=== PATIENT | male | born 1970 | race Caucasian/White ===

== ENCOUNTER 2017-01-16 23:04 | Emergency (ER) | payer OTHER ==
[~2017-01-16] VITALS: Ht 180.3 cm; Wt 83.5 kg
[~2017-01-16 23:04] MED LIST: LISI10TA2 PO
[2017-01-16 23:18] VITALS: BP 133/81
[2017-01-16] MEDS ORDERED: AMOX1TAB61 PO (23:28)
--- NOTE | 2017-01-16 23:28 | PHYS DOC ---
Past Medical History Past Medical History: Hypertension, Other Additional Past Medical Histor: hyperlidipemia, blind left eye Past Surgical History: Other Additional Past Surgical Histo: left eye Alcohol Use: None Drug Use: None Adult General Chief Complaint Chief Complaint: COUGH HPI HPI Patient is a 46 year old male presents to the emergency department complaining of a cough sore throat that started last night. He states that when he coughs he has a little bit of chest pressure. He states that he had slight shortness of air with the coughing. He denies fever, chills or any nausea vomiting. He denies any chest discomfort at the current time. Review of Systems Review of Systems Constitutional: Denies fever or chills [] Eyes: Denies change in visual acuity, redness, or eye pain [] HENT: Denies nasal congestion or sore throat [] Respiratory: cough denies shortness of breath [] Cardiovascular: No additional information not addressed in HPI [] GI: Denies abdominal pain, nausea, vomiting, bloody stools or diarrhea [] : Denies dysuria or hematuria [] Musculoskeletal: Denies back pain or joint pain [] Integument: Denies rash or skin lesions [] Neurologic: Denies headache, focal weakness or sensory changes [] Allergies Allergies Allergies Coded Allergies Type Severity Reaction Last Updated Verified No Known Drug Allergies 09/26/16 No Physical Exam Physical Exam Constitutional: Well developed, well nourished, no acute distress, non-toxic appearance. [] HENT: Normocephalic, atraumatic, bilateral external ears normal, oropharynx moist, no oral exudates, nose normal. Bilateral tympanic membranes appear to be normal. Throat with erythematous noted redness with postnasal drip noted. Eyes: PERRLA, EOMI, conjunctiva normal, no discharge. [] Neck: Normal range of motion, no tenderness, supple, no stridor. [] Cardiovascular:Heart rate regular rhythm, no murmur [] Lungs & Thorax: Bilateral breath sounds clear to auscultation [] Skin: Warm, dry, no erythema, no rash. [] Back: No tenderness Extremities: No tenderness, no cyanosis, no clubbing, ROM intact, no edema. [] Neurologic: Alert and oriented X 3, normal motor function, normal sensory function, no focal deficits noted. [] Psychologic: Affect normal, judgement normal, mood normal. [] EKG EKG [] Radiology/Procedures Radiology/Procedures [] Course & Med Decision Making Course & Med Decision Making Pertinent Labs and Imaging studies reviewed. (See chart for details) [] Dragon Disclaimer Dragon Disclaimer This electronic medical record was generated, in whole or in part, using a voice recognition dictation system. Departure Departure Impression: Primary Impression: Acute bacterial sinusitis Disposition: HOME, SELF-CARE Condition: STABLE Referrals: FERMÍN BUENO MD (PCP) Patient Instructions: Sinusitis, [id number] Additional Instructions: Activity as tolerated. Medications as prescribed. Mucinex DM to help with nasal congestion and cough. Drink on a fluids such as water propel or Gatorade. Follow-up with primary care physician in the next 3-5 days. Return back to emergency prior signs symptoms of become worse. Scripts Amoxicillin/Potassium Clav (Augmentin 875-125 Tablet)1 Each Tablet1 Tab PO BID # 20 TAB Prov:ANASTACIO LEVY APRN 01/16/17 ANASTACIO LEVY APRN Jan 16, 2017 23:28
== END 2017-01-16 23:30 | disposition home or self-care (01) ==
LOC: ER 23:04
DX: J01.80 Other acute sinusitis (principal); I10 Essential (primary) hypertension; R06.02 Shortness of breath
CPT/HCPCS: 99283

== ENCOUNTER 2017-05-01 19:49 | Emergency (ER) | payer OTHER ==
[~2017-05-01] VITALS: Ht 180.3 cm; Wt 79.0 kg
[~2017-05-01 19:49] MED LIST changes: +AMOX1TAB61 PO
[2017-05-01] MEDS ORDERED: IV NORMAL SALINE 1000ML BAG 1,000 ML IV ONE (20:30)
[2017-05-01 20:40] LABS: BASO % 1 % (0-3); EOS % 1 % (0-3); HEMATOCRIT 43.4 % (39.0-53.0); HEMOGLOBIN 15.2 g/dL (13.0-17.5); LYMPH # 0.4 x10^3/uL (1.0-4.8); LYMPH % 10 % (24-48); MEAN CORPUSCULAR HEMOGLOBIN 29 pg (25-35); MEAN CORPUSCULAR HGB CONC 35 g/dL (31-37); MEAN CORPUSCULAR VOLUME 83 fL (79-100); MONO % 13 % (0-9); NEUT % 76 % (31-73); PLATELET COUNT 193 x10^3/uL (140-400); RED BLOOD COUNT 5.24 x10^6/uL (4.30-5.70); WHITE BLOOD COUNT 4.3 x10^3/uL (4.0-11.0)
[2017-05-01 20:59] LABS: CALCIUM 8.7 mg/dL (8.5-10.1); CREATININE 1.2 mg/dL (0.7-1.3); GFR 64.4; POTASSIUM 3.8 mmol/L (3.5-5.1)
[2017-05-01 21:04] LABS: BILIRUBIN,URINE NEGATIVE (NEG); GLUCOSE,URINE NEGATIVE (NEG); NITRITE,URINE NEGATIVE (NEG); PROTEIN,URINE NEGATIVE (NEG-TRACE); UROBILINOGEN,URINE 0.2 mg/dL (0.2 mg/dL)
--- NOTE | 2017-05-01 21:10 | RAD ---
EXAM: Head CT without contrast. HISTORY: Weakness. TECHNIQUE: Computed tomographic images of the head were obtained without contrast. *One or more of the following individualized dose reduction techniques were utilized for this examination: 1. Automated exposure control. 2. Adjustment of the mA and/or kV according to patient size. 3. Use of iterative reconstruction technique. COMPARISON: None. FINDINGS: There is no acute or subacute extra-axial or intraparenchymal hemorrhage. There is no mass effect or midline shift. There is no hydrocephalus. There is mild cerebral volume loss, slightly greater than expected for patient age. There is slight deformity of the inferior right orbit, partially included on the [id number]-[id number] and possibly due to a chronic inferior orbital wall fracture. The mastoid air cells are clear. No calvarial lesion is seen. IMPRESSION: No acute intracranial finding. Note is made that MRI is more sensitive for acute infarction. Electronically signed by: Jackeline Flowers MD (05/01/2017 9:07 PM) [facility]
[2017-05-01 21:12] LABS: ALBUMIN 4.1 g/dL (3.4-5.0); ALBUMIN/GLOBULIN RATIO 1.2 (1.0-1.7); TOTAL BILIRUBIN 0.6 mg/dL (0.2-1.0); TOTAL PROTEIN 7.6 g/dL (6.4-8.2)
[2017-05-01 21:12] LABS: BACTERIA,URINE 0 /HPF (0-FEW); RBC,URINE 0 /HPF (0-2); SQUAMOUS EPITHELIAL CELL,UR OCC /LPF
--- NOTE | 2017-05-01 21:58 | PHYS DOC ---
Past Medical History Past Medical History: High Cholesterol, Hypertension, Other Additional Past Medical Histor: hyperlidipemia, blind left eye Past Surgical History: Other Additional Past Surgical Histo: left eye Alcohol Use: None Drug Use: None Adult General Chief Complaint Chief Complaint: DIZZY/LIGHT HEADED HPI HPI Patient is a 47 year old male who presents with generalized weakness. Patient reports three-day history of generalized weakness, not unilateral and not associated with sensory changes. Denies any other symptoms including fevers or chills, headache, vision changes, speech changes, chest pain, shortness of breath, abdominal pain, nausea, vomiting, diarrhea, hematochezia or melena, lower extremity pain or swelling. Denies any gait abnormalities. History of hypertension and he is blind in his left eye. Review of Systems Review of Systems Constitutional: Denies fever or chills , reports generalized weakness Eyes: Denies change in visual acuity HENT: Denies nasal congestion or sore throat Respiratory: Denies cough or shortness of breath Cardiovascular: Denies chest pain or edema GI: Denies abdominal pain, nausea, vomiting, bloody stools or diarrhea : Denies dysuria or hematuria Musculoskeletal: Denies back pain or joint pain Integument: Denies rash or skin lesions Neurologic: Denies headache, focal weakness or sensory changes Current Medications Current Medications Current Medications Medications (Trade) Dose Ordered Sig/Dottie Start Time Stop Time Status Last Admin Dose Admin Sodium Chloride 1,000 ml @ 1,000 mls/hr 1X ONCE 05/01/17 20:30 05/01/17 21:29 DC 05/01/17 20:41 1,000 MLS/HR Allergies Allergies Allergies Coded Allergies Type Severity Reaction Last Updated Verified No Known Drug Allergies 09/26/16 No Physical Exam Physical Exam Constitutional: Well developed, well nourished, no acute distress, non-toxic appearance. HENT: Normocephalic, atraumatic, bilateral external ears normal, oropharynx moist, nose normal. Eyes: R pupil reactive, L eye opacification, EOMI, R conjunctiva normal, no discharge. Neck: supple, no stridor. Cardiovascular: RRR, no murmurs, no edema. Lungs & Thorax: LCTAB, no wheezing, no respiratory distress. Abdomen: soft, nontender, nondistended. Skin: Warm, dry, no erythema, no rash. Back: No tenderness. Extremities: No tenderness, no edema. no calf tenderness or swelling. Neurologic: Alert and oriented X 3, CN2-12 grossly intact, symmetric strength/ sensation to UE & LE, no focal deficits noted. Psychologic: Affect normal, judgement normal, mood normal. Current Patient Data Vital Signs Vital Signs Date Time Temp Pulse Resp B/P (MAP) Pulse Ox O2 Delivery O2 Flow Rate FiO2 05/01/17 22:00 100 28 133/78 (96) 100 Room Air 05/01/17 20:03 98.0 98.0 Lab Values Laboratory Tests Test 05/01/17 19:58 05/01/17 20:53 White Blood Count 4.3 x10^3/uL (4.0-11.0) Red Blood Count 5.24 x10^6/uL (4.30-5.70) Hemoglobin 15.2 g/dL (13.0-17.5) Hematocrit 43.4 % (39.0-53.0) Mean Corpuscular Volume 83 fL (79-100) Mean Corpuscular Hemoglobin 29 pg (25-35) Mean Corpuscular Hemoglobin Concent 35 g/dL (31-37) Red Cell Distribution Width 13.0 % (11.5-14.5) Platelet Count 193 x10^3/uL (140-400) Neutrophils (%) (Auto) 76 % (31-73) H Lymphocytes (%) (Auto) 10 % (24-48) L Monocytes (%) (Auto) 13 % (0-9) H Eosinophils (%) (Auto) 1 % (0-3) Basophils (%) (Auto) 1 % (0-3) Neutrophils # (Auto) 3.3 x10^3uL (1.8-7.7) Lymphocytes # (Auto) 0.4 x10^3/uL (1.0-4.8) L Monocytes # (Auto) 0.5 x10^3/uL (0.0-1.1) Eosinophils # (Auto) 0.0 x10^3/uL (0.0-0.7) Basophils # (Auto) 0.0 x10^3/uL (0.0-0.2) Sodium Level 140 mmol/L (136-145) Potassium Level 3.8 mmol/L (3.5-5.1) Chloride Level 101 mmol/L (98-107) Carbon Dioxide Level 31 mmol/L (21-32) Anion Gap 8 (6-14) Blood Urea Nitrogen 12 mg/dL (8-26) Creatinine 1.2 mg/dL (0.7-1.3) Estimated GFR (Cockcroft-Gault) 64.4 BUN/Creatinine Ratio 10 (6-20) Glucose Level 98 mg/dL (70-99) Calcium Level 8.7 mg/dL (8.5-10.1) Total Bilirubin 0.6 mg/dL (0.2-1.0) Aspartate Amino Transferase (AST) 14 U/L (15-37) L Alanine Aminotransferase (ALT) 23 U/L (16-63) Alkaline Phosphatase 81 U/L (46-116) Troponin I Quantitative < 0.017 ng/mL (0.000-0.055) Total Protein 7.6 g/dL (6.4-8.2) Albumin 4.1 g/dL (3.4-5.0) Albumin/Globulin Ratio 1.2 (1.0-1.7) Urine Collection Type Void Urine Color Yellow Urine Clarity Clear Urine pH 6.0 Urine Specific [place] 1.015 Urine Protein Negative mg/dL (NEG-TRACE) Urine Glucose (UA) Negative mg/dL (NEG) Urine Ketones (Stick) Negative mg/dL (NEG) Urine Blood Negative (NEG) Urine Nitrite Negative (NEG) Urine Bilirubin Negative (NEG) Urine Urobilinogen Dipstick 0.2 mg/dL (0.2 mg/dL) Urine Leukocyte Esterase Negative (NEG) Urine RBC 0 /HPF (0-2) Urine WBC 1-4 /HPF (0-4) Urine Squamous Epithelial Cells Occ /LPF Urine Bacteria 0 /HPF (0-FEW) Laboratory Tests 05/01/17 19:58 Laboratory Tests 05/01/17 19:58 EKG EKG Interpreted by me: Normal sinus rhythm rate 96, no acute ST or T wave changes, normal intervals, no ectopy [] Radiology/Procedures Radiology/Procedures PROCEDURE: CT HEAD WO CONTRAST EXAM: Head CT without contrast. HISTORY: Weakness. TECHNIQUE: Computed tomographic images of the head were obtained without contrast. *One or more of the following individualized dose reduction techniques were utilized for this examination: 1. Automated exposure control. 2. Adjustment of the mA and/or kV according to patient size. 3. Use of iterative reconstruction technique. COMPARISON: None. FINDINGS: There is no acute or subacute extra-axial or intraparenchymal hemorrhage. There is no mass effect or midline shift. There is no hydrocephalus. There is mild cerebral volume loss, slightly greater than expected for patient age. There is slight deformity of the inferior right orbit, partially included on the [id number] and possibly due to a chronic inferior orbital wall fracture. The mastoid air cells are clear. No calvarial lesion is seen. IMPRESSION: No acute intracranial finding. Note is made that MRI is more sensitive for acute infarction. Electronically signed by: Jackeline Flowers MD (05/01/2017 9:07 PM) [facility] DICTATED and SIGNED BY: JACKELINE FLOWERS MD DATE: 05/01/172103 CXR, portable: interpreted by me: no cardiomegaly, no infiltrate, no pneumothorax, no acute process.[] Course & Med Decision Making Course & Med Decision Making Pertinent Labs and Imaging studies reviewed. (See chart for details) The patient presents with generalized weakness. He is well-appearing with stable vitals other than slight tachycardia. Give IV fluids. His heart rate improved to 90s. Not febrile, normal white blood cell count. No leftward abnormalities. No acute abnormality on head CT or chest x-ray. Discussed results with patient. He would like to go home and feels well. Recommend supportive care with rest, hydration. Would expect improvement if related to viral illness. Follow-up with primary care physician in 2-3 days if not improving. Return to the emergency department for focal neurologic deficit, severe shortness of breath or chest pain, any otherwise worsening condition. Discharged home in stable condition. [] Dragon Disclaimer Dragon Disclaimer This electronic medical record was generated, in whole or in part, using a voice recognition dictation system. Departure Departure Impression: Primary Impression: Generalized weakness Disposition: 01 HOME, SELF-CARE Condition: STABLE Referrals: DANAE TAVAREZ DO (PCP) Patient Instructions: Weakness, [id number] Additional Instructions: You were seen in the emergency department today for generalized weakness. Tests here did not show any serious cause of your symptoms. We discussed admission to the hospital for further evaluation and treatment. You preferred to go home due to other obligations. Please rest, drink fluids, follow-up with primary care physician in 2 days if symptoms continue. Return to the emergency department for numbness or weakness affecting one side of her body, speech changes, severe shortness of breath or chest pain, any otherwise worsening condition. NASRA HAYES MD May 01, 2017 21:58
[2017-05-01 22:00] VITALS: BP 133/78
--- NOTE | 2017-05-02 11:19 | RAD ---
AP portable chest radiograph 05/01/2017 Clinical History: Weakness and shortness of breath since earlier today. An AP portable erect digital radiograph of the chest was obtained. No previous studies are available for comparison. The cardiac silhouette is normal in size. The thoracic aorta is minimally tortuous. No acute pulmonary infiltrate is seen. No pleural effusion or pneumothorax is noted. The osseous structures are grossly intact. Impression: No acute abnormality is seen.
--- NOTE | 2017-05-02 14:44 | EKG ---
[facility] [address] [place] [address] Test Date: 2017-05-01 Test Time: 20:51:27 Pat Name: TODD GEORGE Department: Room: Gender: M Recruitment Coordinator: : 1970 Requested By: NASRA HAYES Order Number: [id number] Reading MD: Measurements Intervals [place] Rate: 96 P: 50 MT: 138 QRS: 85 QRSD: 100 T: 63 QT: 320 QTc: 410 Interpretive Statements SINUS RHYTHM S1,S2,S3 PATTERN QRS(T) CONTOUR ABNORMALITY CONSISTENT WITH ANTEROSEPTAL INFARCT AGE UNDETERMINED CONSIDER INFERIOR MYOCARDIAL DAMAGE RI6.01 Unconfirmed report No previous ECG available for comparison
== END 2017-05-01 22:11 | disposition home or self-care (01) ==
LOC: ER 19:49
DX: R53.1 Weakness (principal); I10 Essential (primary) hypertension; E78.00 Pure hypercholesterolemia, unspecified; E78.5 Hyperlipidemia, unspecified
CPT/HCPCS: 36415; 70450; 71010; 80053; 81001; 84484; 85025; 93005; 96360; 99285; J7030

== ENCOUNTER 2018-02-15 18:14 | Emergency (ER) | payer OTHER ==
[2018-02-15 19:20] LABS: BILIRUBIN,URINE NEGATIVE (NEG); CLARITY,URINE CLEAR; COLOR,URINE YELLOW; GLUCOSE,URINE NEGATIVE (NEG); NITRITE,URINE NEGATIVE (NEG); PH,URINE 7.5; PROTEIN,URINE NEGATIVE (NEG-TRACE)
[2018-02-15 19:30] LABS: RBC,URINE OCC /HPF (0-2)
[2018-02-15 19:31] LABS: BACTERIA,URINE 0 /HPF (0-FEW); WBC,URINE 0 /HPF (0-4)
[2018-02-15] MEDS: cefTRIAXone IM 250 MG VIAL IM (20:21)
[2018-02-15] MEDS: AZITHROMYCIN 250 MG TABLET. PO (20:21)
== END 2018-02-15 20:40 | disposition home or self-care (01) ==
LOC: ER 18:14
DX: R30.0 Dysuria (principal); R35.0 Frequency of micturition; R39.11 Hesitancy of micturition; E78.00 Pure hypercholesterolemia, unspecified; I10 Essential (primary) hypertension; E78.5 Hyperlipidemia, unspecified
CPT/HCPCS: 81001; 87491; 87591; 96372; 99284-25; J0696; Q0144

== ENCOUNTER 2018-07-22 19:18 | Emergency (ER) | payer OTHER ==
[~2018-07-22] VITALS: Ht 180.3 cm; Wt 84.8 kg
[2018-07-22 19:25] VITALS: BP 132/91
[2018-07-22] MEDS ORDERED: PROPARACAINE/FLUORESCEIN 0.5 ML OPHTH DROPS. OS ONE (19:30)
[2018-07-22] MEDS ORDERED: FLUORESCEIN OPHTH TEST STRIP. OS ONE (19:45)
[2018-07-22] MEDS ORDERED: PROPARACAINE 0.5% OPHTH SOLUTION 15ML BOTTLE. OS ONE (19:45)
[2018-07-22] MEDS ORDERED: HYDROcodone/APAP 5/325MG 1 TAB TABLET PO ONE (20:15)
[2018-07-22] MEDS ORDERED: TIMOLOL 0.5% OPHTH SOLUTION 5ML BOTTLE. OS ONE (20:30)
[2018-07-22] MEDS ORDERED: CYCLOPENTOLATE 1% OPTH SOLUTION 2ML BOTTLE. OS ONE (20:30)
[2018-07-22] MEDS ORDERED: HYDR-971 PO (20:38)
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
== END 2018-07-22 20:54 | disposition home or self-care (01) ==
LOC: ER 19:18
DX: H40.052 Ocular hypertension, left eye (principal); H01.9 Unspecified inflammation of eyelid; E78.00 Pure hypercholesterolemia, unspecified; I10 Essential (primary) hypertension; Z86.69 Personal history of other diseases of the nervous system and sense organs
CPT/HCPCS: 99284